=== PATIENT | female | born 1960 | race Caucasian/White ===

== ENCOUNTER 2019-12-30 10:11 | Emergency (ER) | payer OTHER ==
[~2019-12-30] VITALS: Ht 167.6 cm; Wt 136.1 kg
[2019-12-30] MEDS ORDERED: CELEXA 20 MG TA20 MG PO (10:48)
[2019-12-30] MEDS ORDERED: CARVEDILOL12.5 MG PO (10:49)
[2019-12-30] MEDS ORDERED: ADVAIR 250-501 EACH INH (10:49)
[2019-12-30] MEDS ORDERED: LISINOPRIL2.5 MG PO (10:51)
[2019-12-30] MEDS ORDERED: WELLBUTRIN 75 M75 M1 PO (10:51)
[2019-12-30] MEDS ORDERED: SINGULAIR 10 MG10 MG PO (10:51)
[2019-12-30] MEDS ORDERED: TESSALON PERLE100 M1 PO (12:04)
[2019-12-30] MEDS ORDERED: ZOFRAN ODT4 MG DISSOLVE (12:04)
[2019-12-30 12:23] VITALS: BP 134/72
== END 2019-12-30 12:23 | disposition home or self-care (01) ==
LOC: M.ERS 10:11
DX: U07.1 COVID-19 (principal); I10 Essential (primary) hypertension; J45.909 Unspecified asthma, uncomplicated; E66.9 Obesity, unspecified; Z68.42 Body mass index [BMI] 45.0-49.9, adult; Z79.899 Other long term (current) drug therapy; Z88.0 Allergy status to penicillin; Z88.8 Allergy status to other drugs, medicaments and biological substances

== ENCOUNTER 2020-06-24 17:32 | Emergency (ER) | payer OTHER ==
[~2020-06-24] VITALS: Ht 167.6 cm; Wt 104.3 kg
[~2020-06-24 17:32] MED LIST: ADVAIR 250-501 EACH INH; CARVEDILOL12.5 MG PO; CELEXA 20 MG TA20 MG PO; LISINOPRIL2.5 MG PO; SINGULAIR 10 MG10 MG PO; TESSALON PERLE100 M1 PO; WELLBUTRIN 75 M75 M1 PO; ZOFRAN ODT4 MG DISSOLVE
[2020-06-24] MEDS ORDERED: CEPHALEXIN500 MG PO (19:11)
[2020-06-24 19:27] VITALS: BP 146/91
== END 2020-06-24 19:28 | disposition home or self-care (01) ==
LOC: M.ERS 17:32
DX: S61.206A Unspecified open wound of right little finger without damage to nail, initial encounter (principal); I10 Essential (primary) hypertension; J45.909 Unspecified asthma, uncomplicated; E66.9 Obesity, unspecified; Z68.37 Body mass index [BMI] 37.0-37.9, adult; Z85.820 Personal history of malignant melanoma of skin; Z79.899 Other long term (current) drug therapy; Z88.0 Allergy status to penicillin; Z88.8 Allergy status to other drugs, medicaments and biological substances; W26.8XXA Contact with other sharp object(s), not elsewhere classified, initial encounter; Y93.89 Activity, other specified; Y92.89 Other specified places as the place of occurrence of the external cause; Y99.8 Other external cause status

== ENCOUNTER 2020-09-03 18:21 | Emergency (ER) | payer OTHER ==
[~2020-09-03] VITALS: Ht 167.6 cm; Wt 136.1 kg
[~2020-09-03 18:21] MED LIST changes: +CEPHALEXIN500 MG PO
[2020-09-03 20:59] VITALS: BP 138/76
== END 2020-09-03 20:59 | disposition home or self-care (01) ==
LOC: M.ERS 18:21
DX: M79.661 Pain in right lower leg (principal); I10 Essential (primary) hypertension; J45.909 Unspecified asthma, uncomplicated; E66.9 Obesity, unspecified; Z68.42 Body mass index [BMI] 45.0-49.9, adult; Z88.0 Allergy status to penicillin; Z88.8 Allergy status to other drugs, medicaments and biological substances